=== PATIENT | male | born 1980 | race Caucasian/White ===

== ENCOUNTER → 2016-07-22 | Outpatient (CLI) | payer BC ==
[2016-07-22 14:22] LABS: COMPLEMENT C4 25.3 MG/DL (10-40); TOTAL PROTEIN 7.4 GM/DL (6.4-8.2)
[2016-07-23 09:28] LABS: THYROID PEROXIDASE ANTIBODY 37.8 U/ML (<60.0)
[2016-07-26 12:53] LABS: ALBUMIN % 59.4 % (55.8-66.1); GAMMA GLOBULIN % 13.7 % (11.1-18.8)
[2016-07-28 00:08] LABS: C1 ESTER INHIB. NON FUNCTIONAL 29 mg/dL (21-39); IGE RECEPTOR ABY 1 13.6 (<10)
== END ==
LOC: M LAB 11:28
PROVIDERS: ATTEND Family Medicine
DX: R63.5 Abnormal weight gain (principal); R53.81 Other malaise; T78.3XXA Angioneurotic edema, initial encounter